=== PATIENT | female | born 1950 | race Caucasian/White ===

== ENCOUNTER 2022-06-05 11:15 | Outpatient (CLI) | payer MEDICARE, BC, SELFPAY | END 2022-06-05 11:16 | disposition home or self-care (01) | PROVIDERS: Visit Provider Orthopaedic Surgery | DX: Z01.818 Encounter for other preprocedural examination (principal) | CPT/HCPCS: 36415; 86850; 86900; 86901 ==

== ENCOUNTER 2022-06-07 05:57 | Day surgery (SDC) | payer MEDICARE, BC, SELFPAY ==
[2022-06-07] VITALS (26 sets, daily range): BP systolic 109–171; BP diastolic 45–79; PULSE 46–68; RESP 12–18; TEMP 35.6–36.4; O2SAT 95–100; BMI 27.6
[2022-06-07] MEDS: ACETAMINOPHEN 500 MG TABLET 1000 MG PO ×3 (06:32→22:00)
[2022-06-07] MEDS: OXYCODONE (CR) 10 MG TAB.ER.12H PO (06:32)
[2022-06-07] MEDS: CELECOXIB 200 MG CAPSULE PO ×2 (06:32→20:41)
[2022-06-07] MEDS: SODIUM CHLORIDE 0.9 % (FLUSH) 10 ML SYRINGE IVF (06:45)
[2022-06-07] MEDS: LACTATED RINGERS 1000 ML 1,000 ML 100 ML IV (06:45)
[2022-06-07] MEDS: MIDAZOLAM HCL 1 MG/ML inj IVP (07:10)
[2022-06-07] MEDS: fentaNYL 100 MCG/2 ML inj IVP (07:10)
--- NOTE | 2022-06-07 07:13 | SUR.PREOP ---
TIME?OUT:?0709 PT/YOKASTA RN/Jules MUHAMMAD MDA?VERIFICATION?OF?SURGICAL?SITE,?PROCEDURE,?AND?CONSENT OBTAINED?PRIOR?TO?INVASIVE?PROCEDURE.
[2022-06-07] MEDS: TRANEXAMIC ACID 100 MG/ML INJ 1000 MG IV (07:50)
[2022-06-07] MEDS: CEFAZOLIN 2 GM INJ IVP (07:55)
--- NOTE | 2022-06-07 08:16 | CRLHL7_ITS ---
For Patients: As a result of the Cures Act, medical imaging exams and procedure reports are released immediately into your electronic medical record. You may view this report before your referring provider. If you have questions, please contact your health care provider. Indication: Hip replacement surgery Technique: AP hip fluoroscopic image. Fluoroscopy time 56.3 seconds. Findings/Impression: Hardware from a left total hip arthroplasty is in satisfactory position. Dictated by Eloy Ahumada MD @ 06/07/2022 9:26:54 AM (Electronically Signed)
--- NOTE | 2022-06-07 09:13 | W.PM.NB ---
Nerve Block Nerve Block Time Seen by Provider: 07:10 Date Seen: 06/07/22 Type of block requested by surgeon for post-operative analgesia: CHEMA/LFCN Side: left Time out performed: Yes Verification of patient name: Yes Verification of date of : Yes Site marking: site marked Name of person performing procedure: Tariq Continuous monitoring Was continuous monitoring of O2 sat, B/P, shell core and molding supervisor, recorded every 15 minutes?: Yes Procedure Checklist: sterile prep, needles and gloves Ultrasound guided. Images saved: Yes Medications given in 5ml increments after negative aspiration: Ropivicaine %: 0.5 mL: 20 Needle gauge: 20 Decadron (mg): 10 Precedex (mcg): 25 Patient tolerated procedure well: Yes Additional comments: Needle noted adjacent to nerve Block Charges Block Charge (with Pro Fee): Other Periph Nerve Block Use of Ultrasound Machine for Block: Yes- US Guidance/pain block
--- NOTE | 2022-06-07 09:14 | P.ORPRC_ITS ---
Procedure Note Date of procedure: 06/07/22 Procedure: SURGEON: Manolo Latif MD MANAGER CONSTRUCTION: Danielle White PA-C, DOUGLAS Murphy PREOPERATIVE DIAGNOSIS: Left hip osteoarthritis POSTOPERATIVE DIAGNOSIS: Left hip osteoarthritis NAME OF OPERATION: Left total hip arthroplasty IMPLANTS: 1. [employer] [place] # 52 sector ingrowth cup 2. 36 x 52 +4 neutral polyethylene 3. Corail # 15 standard collared ingrowth stem 4. 36 + 1.5 ceramic femoral head ANESTHESIA: General ESTIMATED BLOOD LOSS: 100 cc COMPLICATIONS: None SPECIMENS: None DRAINS: None PREOPERATIVE ANTIBIOTICS: Ancef 2 grams INDICATIONS: The patient is a 72-year-old with a longstanding history of severe, unrelenting left hip pain secondary to end-stage left hip osteoarthritis. Despite appropriate nonoperative management, including activity modification, use of an assist device, anti-inflammatories, ertw-mzj-srllejb deanna n medication, physical therapy and injections, they continue to have pain and disability. Operative intervention was offered. The risks, benefits and expected outcomes were discussed in detail. These included but were not limited to: Infection, bleeding, injury to blood vessel or nerve, venous thromboembolism. All questions were answered to their satisfaction. Use of an clinical physician assistant was necessary throughout the case for patient positioning and safety, soft tissue retraction and closure. PROCEDURE: The patient was placed supine on the Earp table. General anesthesia was administered. The clinical physician assistant made sure the patient was properly positioned. The left hip was prepped and draped in the usual sterile fashion. The image intensifier was brought in for a perfect AP pelvis and a perfect double tear drop AP view of each hip which were used for intraoperative templating with our fluoroscopic guide. An oblique incision was made 3 cm distal and 3 cm lateral to the anterior superior iliac spine. The clinical physician assistant retracted the soft tissues to protect them. Subcutaneous dissection was taken with electrocautery to the superficial fascia. The fascia was divided in line with the incision. Blunt dissection was carried medially to the tensor fascia deepika and sartorius interval. Deep dissection was carried with electrocautery. The circumflex vessels were cauterized and divided. The capsule was exposed and then divided in a T- fashion, tagged with #1 Ethibond sutures. Retractors were placed in the joint, held by the clinical physician assistant. The corkscrew was placed in the femoral head. The neck cut was made in the subcapital region. We made a second neck cut more distal. The napkin ring of bone was removed. The femoral head was removed intact. Acetabular retractors were placed, held by the clinical physician assistant. The labrum was sharply debrided. The capsule was released. The 43 mm reamer was used to the true medial wall. We then enlarged in 2 mm increments using the image intensifier for our reamer placement. We impacted the cup which had excellent purchase. We placed the hole eliminator and the polyethylene. Attention was then turned to the proximal femur. The limb was placed in 140 degrees of external rotation, maximum extension and adduction. A significant amount of time was spent releasing the capsule to allow us to deliver the femur into the wound and complete the femoral side safely. Retractors were held by the clinical physician assistant throughout the femoral preparation. The jukebox operator and canal finder were used. Broaches were used to a stable size. The calcar reamer was used. Trial components were placed. The hip was reduced and was found to be stable with appropriate soft tissue tension. Length and offset had been nicely restored using the image intensifier and our fluoroscopic guide. Trial components were removed. The stem was impacted. We placed the femoral head. Again, the hip was reduced and was found to be stable with appropriate soft tissue tension. Length and offset had been nicely restored. The clinical physician assistant did a three minute dilute Betadine solution soak. The clinical physician assistant irrigated the wound with 3 liters of normal saline via pulse lavage. The as sistant repaired the anterior capsule with a #1 Vicryl and our previously placed Ethibond sutures. The clinical physician assistant closed the fascia over the tensor fascia deepika with a #1 PDO Stratafix, subcutaneous tissues with 2-0 Vicryl, skin with a running 3-0 Stratafix and glue. A dry dressing was applied by the clinical physician assistant. Sponge and needle counts were correct x 2. The patient tolerated the procedure well; there were no apparent complications. They were awakened and extubated in the operating room, sent to the Post-Anesthesia Care Unit in satisfactory condition. PLAN: 1. The patient will be mobilized with physical therapy, weight-bearing as tolerates 2. Xarelto x 5 days then aspirin x 30 days will be used for DVT prophylaxis 3. The patient will be discharged once medically appropriate
--- NOTE | 2022-06-07 09:49 | CRLHL7_ITS ---
For Patients: As a result of the Cures Act, medical imaging exams and procedure reports are released immediately into your electronic medical record. You may view this report before your referring provider. If you have questions, please contact your health care provider. Indication: POST OP LEFT TISH Technique: AP hip centered pelvis and lateral view left hip Findings/Impression: Hardware from a left total hip arthroplasty is in satisfactory position. Bone alignment is normal. No sign of acute fracture. Postop changes are within normal limits. Dictated by Eloy Ahumada MD @ 06/07/2022 10:21:25 AM (Electronically Signed)
--- NOTE | 2022-06-07 09:52 | W.ANESCHARGE ---
Anesthesia Charges Start Date/Time Anesthesia Start Date: 06/07/22 Anesthesia Start Time: 07:42 Stop Date/Time Anesthesia Stop Date: 06/07/22 Anesthesia Stop Time: 09:50 Summary Emergency: No Extremes of Age: Over 70-CPT 20687
[2022-06-07] MEDS: fentaNYL 100 MCG/2 ML inj 50 MCG IVP (09:57)
[2022-06-07] MEDS: MEPERIDINE 25 MG/ML INJ 12.5 MG IVP (10:01)
--- NOTE | 2022-06-07 10:03 | SUR.PHASEI ---
PATIENT STATES HURTS. ADMIN FENTANYL AND DEMEROL - SEE EMAR
--- NOTE | 2022-06-07 10:15 | W.ANESCHARGE ---
Anesthesia Charges Start Date/Time Anesthesia Start Date: 06/07/22 Anesthesia Start Time: 07:42 Stop Date/Time Anesthesia Stop Date: 06/07/22 Anesthesia Stop Time: 09:50 Summary Emergency: No Extremes of Age: Over 68-CPT 62613
--- NOTE | 2022-06-07 10:29 | SUR.PHASEI ---
PT. VITAL SIGNS STABLE. TRANSFERRED PT TO M/S/ VIA BED.
[2022-06-07] MEDS: LACTATED RINGERS 1000 ML 1,000 ML 75 ML IV (12:56)
[2022-06-07] MEDS: CEFAZOLIN 1 GM in 0.9 % SODIUM CHLORIDE Mini-bag 100 ML IVPB ×2 (13:46→22:01)
[2022-06-07] MEDS: OXYCODONE 5 MG TABLET PO (13:51)
--- NOTE | 2022-06-07 14:49 | PM.IMCN1 ---
Date of Consult Patient: Other Consult date: 06/07/22 Requesting Physician: Orthopedics Primary Care Provider: Tash Oconnor MD Consult Narrative Reason for consult: Help managing hypertension perioperatively Narrative: Anayeli Vincent is a 72 year old woman with longstanding history of hypertension and osteoarthritis who presents for an elective left total hip arthroplasty due to end-stage coxarthrosis. Surgery is undertaken per Dr. Latif and there are no apparent postoperative complications. Estimated blood loss 100 mL. Has a sense of lightheadedness or cloudy awareness. She states this happened sometimes with anesthesia. Denies chest heaviness, pressure, tightness, or pain. Denies dyspnea. Denies syncope or near-syncope. Denies orthostasis. Denies nausea or vomiting. Concerned about her blood pressures being higher than what they normally are with systolic values of 150-160 mmHg. Tolerating increased activities including transferring from bed to chair. Review of Systems Status of ROS: Reports: 6 or more systems reviewed and unremarkable except as noted in History and below Narrative: Independent at home. She is the primary caregiver for her ?housemate. ? She is ordinarily quite capable of caring all of her activities of daily living and supporting those around her. Her daughter will be helping her postoperatively. I reviewed the preoperative history and physical. No recent travel, trauma, or injury. No recent infectious illness, fever, rigors, or diaphoresis. No recent weight loss or weight gain. Bowel and bladder are satisfactory. No focal motor neurological deficits. Denies hypoglycemia episodes. Acknowledges longstanding hyponatremia. She tells me that her preop sodium level of 133 is higher than usual. Historically she had been on hydrochlorothiazide. That was stopped and she was switched to triamterene with hydrochlorothiazide, the maxzide formula, and her sodiums have been better controlled since. Ordinarily drinks at least 1 glass of wine nightly. Denies alcohol withdrawals. No other street or recreational drug use. Has never used tobacco. 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 [facility] Medical History (Updated 06/07/22 @ 15:07 by Cl Soto MD) Allergic rhinitis Arthritis GERD (gastroesophageal reflux disease) Hypertension Osteopenia Seborrheic dermatitis of scalp Squamous cell carcinoma of left upper extremity Surgical History H/O eye surgery Hx of tonsillectomy Status post right hip replacement Family History Brother Myocardial infarction Father Myocardial infarction Abdominal aortic aneurysm Mother COPD (chronic obstructive pulmonary disease) Stroke Sister High blood pressure Pulmonary embolism Social History Smoking Status: Never smoker How often do you have a drink containing alcohol: 4 or more times a week Alcohol type: wine How many standard drinks containing alcohol do you have on a typical day: 1 or 2 How often do you have six or more drinks on one occasion: Never AUDIT-C Alcohol total score: 4 Non-prescribed substance use: denies use Non-prescribed substance use details: ibuprofen, acetaminophen Caffeine: Yes (tea, 2 cups/am) Are you using contraception or practicing any form of control: No Meds Home Medications and Allergies Home Medications Medication Instructions Recorded Confirmed Type aspirin 81 mg tablet,delayed 81 mg PO DAILY 06/06/22 06/07/22 History release (Ecotrin Low Strength) cetirizine 10 mg tablet 5 mg PO DAILY PRN 06/06/22 06/07/22 History lisinopril 30 mg tablet 30 mg PO DAILY 06/06/22 06/06/22 History metoprolol succinate 100 mg 100 mg PO HS 06/06/22 06/07/22 History tablet,extended release 24 hr omeprazole 20 mg capsule,delayed 20 mg PO DAILY 06/06/22 06/06/22 History release triamterene 37.5 1 tab PO DAILY 06/06/22 06/06/22 History mg-hydrochlorothiazide 25 mg tablet Allergies Allergy/AdvReac Type Severity Reaction Status Date / Time nitrofurantoin Allergy Severe dyspnea Verified 06/07/22 06:17 [From Macrobid] ketoconazole Allergy Intermediate orally Verified 06/07/22 06:17 caused massive hives rabeprazole Allergy Unknown Verified 06/07/22 06:17 amoxicillin [From Augmentin] AdvReac Intermediate Diarrhea Verified 06/07/22 06:17 clavulanic acid AdvReac Intermediate Diarrhea Verified 06/07/22 06:17 [From Augmentin] Exam Narrative: Exam Narrative: No acute distress. Appears comfortable. Alert, oriented to self, place, time, situation. Articulate and cooperative. Friendly. Mood and affect are congruent. On exam of neck she has no JVD, hepatojugular reflux, or carotid bruits. Neck is supple. Midline trachea. Normal thyroid. No adenopathy in the pre or postauricular chains, anterior-posterior cervical chains, supra or infraclavicular fossa, or axilla bilaterally. Lungs are entirely clear to auscultation. Chest wall excursions are full. Heart tones with regular rhythm, normal S1-S2, no murmur, gallop, or rub. Abdomen with active bowel sounds, soft, nontender. No rebound or guarding. Extremities without edema. Palpable pulses in upper and lower extremities. Skin is warm, dry, intact. No focal motor neurologic deficits. Const: Vital Signs, click to edit/add: Vital Signs - 24 hr 06/07/22 06:29 06/07/22 07:10 06/07/22 07:15 Temperature 97.3 F L Pulse Rate 53 L 50 L 47 L Pulse Rate [Pulse Oximeter] Respiratory Rate 18 16 14 Blood Pressure 148/79 H 144/51 H 110/45 L Blood Pressure [Ri ght Arm] Pulse Oximetry 100 99 98 Oxygen Delivery Me thod Room Air Nasal Cannula Nasal Cannula Oxygen Flow Rate Fraction of Inspir ed Oxygen 2 2 06/07/22 07:30 06/07/22 09:47 06/07/22 09:55 Temperature 97.4 F L Pulse Rate 46 L 54 L 61 Pulse Rate [Pulse Oximeter] Respiratory Rate 14 14 16 Blood Pressure 109/45 L 149/70 H 129/74 Blood Pressure [Ri ght Arm] Pulse Oximetry 100 97 99 Oxygen Delivery Me thod Nasal Cannula Room Air OxyMask Oxygen Flow Rate 10 Fraction of Inspir ed Oxygen 2 06/07/22 10:00 06/07/22 10:05 06/07/22 10:10 Temperature 97.6 F Pulse Rate 60 59 L 56 L Pulse Rate [Pulse Oximeter] Respiratory Rate 14 18 16 Blood Pressure 152/75 H 154/65 H 153/64 H Blood Pressure [Ri ght Arm] Pulse Oximetry 100 100 100 Oxygen Delivery Me thod OxyMask OxyMask Blow By Oxygen Flow Rate 10 6 6 Fraction of Inspir ed Oxygen 06/07/22 10:15 06/07/22 10:20 08/02/22 10:25 Temperature Pulse Rate 56 L 53 L 58 L Pulse Rate [Pulse Oximeter] Respiratory Rate 12 16 16 Blood Pressure 146/61 H 147/65 H 143/65 H Blood Pressure [Ri ght Arm] Pulse Oximetry 97 96 95 Oxygen Delivery Me thod Room Air Room Air Room Air Oxygen Flow Rate Fraction of Inspir ed Oxygen 06/07/22 10:34 06/07/22 10:45 06/07/22 11:00 Temperature 96.0 F L 96.6 F L Pulse Rate 55 L Pulse Rate [Pulse Oximeter] 55 L 56 L Respiratory Rate 14 16 16 Blood Pressure Blood Pressure [Ri ght Arm] 118/76 163/67 H 171/67 H Pulse Oximetry 99 100 Oxygen Delivery Me thod Room Air Room Air Oxygen Flow Rate Fraction of Inspir ed Oxygen 06/07/22 11:15 06/07/22 11:30 06/07/22 12:00 Temperature 96.8 F L Pulse Rate Pulse Rate [Pulse Oximeter] 54 L 53 L 55 L Respiratory Rate 16 16 16 Blood Pressure Blood Pressure [Ri ght Arm] 158/56 H 164/50 H 164/65 H Pulse Oximetry 100 99 98 Oxygen Delivery Me thod Room Air Room Air Room Air Oxygen Flow Rate Fraction of Inspir ed Oxygen 06/07/22 12:30 06/07/22 13:00 Temperature 97.1 F L Pulse Rate Pulse Rate [Pulse Oximeter] 57 L 60 Respiratory Rate 16 18 Blood Pressure Blood Pressure [Ri ght Arm] 161/63 H 152/59 H Pulse Oximetry 97 98 Oxygen Delivery Me thod Room Air Room Air Oxygen Flow Rate Fraction of Inspir ed Oxygen Documenting provider has reviewed patient's vital signs: yes Assessment and Plan Assessment and plan (1) Status post left hip replacement: Status: Acute (2) Osteoarthritis: Status: Acute (3) Hypertension: Status: Acute (4) GERD (gastroesophageal reflux disease): Status: Acute (5) Allergic rhinitis: Status: Acute (6) Chronic hyponatremia: Status: Acute Plan 1. Reviewed my impression with the patient. Answered her questions. 2. Restart most of her antihypertensive medicines today except for we will hold the triamterene with hydrochlorothiazide. 3. Continue to monitor vitals and labs including her serum sodium. 4. Agree with perioperative venous thromboembolism prophylaxis efforts. 5. Agree with perioperative antibiotic prophylaxis. 6. Although she denies alcohol withdrawal symptoms, will be mindful of the possibility. 7. Will follow with Orthopedic surgery while she is in hospital.
[2022-06-07] MEDS: OMEPRAZOLE 20 MG CAPSULE DR PO (15:55)
--- NOTE | 2022-06-07 17:48 | PC.NURSE ---
Pt. up in chair and to BSC with walker, transfer belt and assist of one. Tolerating regular diet. Voiding. Left hip dressing dry and intact. CMS intact. Pain controlled at 2/10 with Oxycodone and scheduled Tylenol.
[2022-06-07] MEDS: METOPROLOL SUCCINATE (XL) 100 MG TAB PO (20:41)
[2022-06-07] MEDS: SENNOSIDES 1 TAB TABLET 2 TAB PO (20:41)
[2022-06-07] MEDS: LORazepam 0.5 MG TABLET PO (22:01)
--- NOTE | 2022-06-07 22:57 | PC.NURSE ---
Shift note 19-23: Pt up to BR w/ SBA and walker, moving well. Rating L hip pain 1-2/10 taking only scheduled only meds along w/ ice to op site. Fluids capped as po intake and UOP adequate, tolerating reg diet. L hip drsg CDI, CMS intact. Plans to DC home w/ daughter help tomorrow.
[2022-06-08] MEDS: OXYCODONE 5 MG TABLET PO ×2 (00:07→08:18)
[2022-06-08 03:00] VITALS: BP 128/51; PULSE 63; RESP 18; TEMP 36.3; O2SAT 95
[2022-06-08] MEDS: ACETAMINOPHEN 500 MG TABLET 1000 MG PO ×2 (03:31→10:06)
[2022-06-08] MEDS: CEFAZOLIN 1 GM in 0.9 % SODIUM CHLORIDE Mini-bag 100 ML IVPB (05:48)
--- NOTE | 2022-06-08 06:06 | PC.NURSE ---
23-07: pt pleasant and cooperative. A x 1 with gb and walker, tolerating very well. No c/o nausea. Passing gas. Clear yellow urine output. Rating left hip pain 1-2/10. LS CTA. VSS. HR 50s-60s.?Dressing CDI. Bruising noted to lateral left hip. Active ice on. Teds on. Pt requested SCDs be removed as they were keeping her from falling asleep.
[2022-06-08 07:02] LABS: Basophils Percent Auto 0.1 % (0.0-3.0); Hematocrit 29.2 % (33.0-51.0); Immature Granulocytes Abs Auto 0.04 K/uL (0.00-0.30); Mean Corpuscular HGB Conc 34 gm/dL (32-36); Mean Corpuscular Hemoglobin 29 pg (26-34); Mean Corpuscular Volume 86 fL (80-100); Monocytes Percent Auto 8.1 % (0.0-11.0); Neutrophils Percent Auto 80.5 % (42.0-72.0); Platelet Count* 360 K/uL (140-440); RDW Coefficient of Variation % 12.2 % (11.5-15.5); Red Blood Count 3.41 m/uL (4.00-5.20); White Blood Count* 13.62 K/uL (4.50-11.00)
[2022-06-08 07:11] LABS: Slide Review Reflex No; Sodium* 125 mmol/L (135-149)
[2022-06-08 07:12] LABS: Potassium* 3.9 mmol/L (3.6-5.1)
[2022-06-08 07:14] LABS: Creatinine* 0.6 mg/dL (0.5-1.5); Est. Creatinine Clearance* 42.62; Estimated Glomerular Filt Rate 94 ml/min
[2022-06-08 07:15] LABS: Blood Urea Nitrogen* 13 mg/dL (7-30)
[2022-06-08 08:09] VITALS: BP 132/63; PULSE 77; RESP 18; TEMP 36.4; O2SAT 98
[2022-06-08] MEDS: lisinopriL 10 MG TABLET 30 MG PO (08:16)
[2022-06-08] MEDS: CELECOXIB 200 MG CAPSULE PO (08:17)
[2022-06-08] MEDS: OMEPRAZOLE 20 MG CAPSULE DR PO (08:17)
[2022-06-08] MEDS: RIVAROXABAN 10 MG TABLET PO (08:17)
[2022-06-08] MEDS: SENNOSIDES 1 TAB TABLET 2 TAB PO (08:18)
--- NOTE | 2022-06-08 08:35 | PM.ORPN ---
Subjective Subjective Time Seen by Provider: 07:45 Date Seen: 06/08/22 Principal diagnosis: Status post left hip replacement Interval history: Anayeli is comfortable in her bed this morning. If she meets discharge criteria she will discharge to home today. Ortho Exam Narrative Exam Narrative: Alert and oriented x3. Patient is in no acute distress. Converses without labored breathing. Hearing is grossly intact. Ambulates with a walker. Examination of the left hip shows the dressing is intact. There is no ecchymosis. No erythema. No warmth. Mild soft tissue edema about the left hip. She is easily able to flex and extend her hip and dorsiflex and plantar flex her ankle. CMS intact left lower extremity. Bilateral calves are soft and nontender. Const Vital Signs, click to edit/add: Vital Signs - 24 hr 06/07/22 09:47 06/07/22 09:55 06/07/22 10:00 Temperature 97.4 F L Pulse Rate 54 L 61 60 Pulse Rate [Pulse Oximeter] Respiratory Rate 14 16 14 Blood Pressure 149/70 H 129/74 152/75 H Blood Pressure [Right Arm] Pulse Oximetry 97 99 100 Oxygen Delivery Method Room Air OxyMask OxyMask Oxygen Flow Rate 10 10 06/07/22 10:05 06/07/22 10:10 06/07/22 10:15 Temperature 97.6 F Pulse Rate 59 L 56 L 56 L Pulse Rate [Pulse Oximeter] Respiratory Rate 18 16 12 Blood Pressure 154/65 H 153/64 H 146/61 H Blood Pressure [Right Arm] Pulse Oximetry 100 100 97 Oxygen Delivery Method OxyMask Blow By Room Air Oxygen Flow Rate 6 6 06/07/22 10:20 06/07/22 10:25 06/07/22 10:34 Temperature 96.0 F L Pulse Rate 53 L 58 L 55 L Pulse Rate [Pulse Oximeter] Respiratory Rate 16 16 14 Blood Pressure 147/65 H 143/65 H Blood Pressure [Right Arm] 118/76 Pulse Oximetry 96 95 Oxygen Delivery Method Room Air Room Air Oxygen Flow Rate 06/07/22 10:45 06/07/22 11:00 06/07/22 11:15 Temperature 96.6 F L Pulse Rate Pulse Rate [Pulse Oximeter] 55 L 56 L 54 L Respiratory Rate 16 16 16 Blood Pressure Blood Pressure [Right Arm] 163/67 H 171/67 H 158/56 H Pulse Oximetry 99 100 100 Oxygen Delivery Method Room Air Room Air Room Air Oxygen Flow Rate 06/07/22 11:30 06/07/22 12:00 06/07/22 12:30 Temperature 96.8 F L 97.1 F L Pulse Rate Pulse Rate [Pulse Oximeter] 53 L 55 L 57 L Respiratory Rate 16 16 16 Blood Pressure Blood Pressure [Right Arm] 164/50 H 164/65 H 161/63 H Pulse Oximetry 99 98 97 Oxygen Delivery Method Room Air Room Air Room Air Oxygen Flow Rate 06/07/22 13:00 06/07/22 14:00 06/07/22 15:00 Temperature 97.3 F L Pulse Rate Pulse Rate [Pulse Oximeter] 60 68 68 Respiratory Rate 18 16 16 Blood Pressure Blood Pressure [Right Arm] 152/59 H 137/72 149/61 H Pulse Oximetry 98 97 97 Oxygen Delivery Method Room Air Room Air Room Air Oxygen Flow Rate 06/07/22 16:00 06/07/22 17:00 06/07/22 19:40 Temperature 97.6 F 97.5 F L Pulse Rate Pulse Rate [Pulse Oximeter] 62 63 64 Respiratory Rate 18 16 18 Blood Pressure Blood Pressure [Right Arm] 152/62 H 150/63 H 147/77 H Pulse Oximetry 97 98 98 Oxygen Delivery Method Room Air Room Air Room Air Oxygen Flow Rate 06/07/22 23:00 06/07/22 23:00 06/08/22 03:00 Temperature 97.1 F L 97.3 F L Pulse Rate Pulse Rate [Pulse Oximeter] 57 L 57 L 63 Respiratory Rate 18 18 18 Blood Pressure Blood Pressure [Right Arm] 123/59 L 128/51 L Pulse Oximetry 97 95 Oxygen Delivery Method Room Air Room Air Oxygen Flow Rate 06/08/22 08:09 Temperature 97.5 F L Pulse Rate Pulse Rate [Pulse Oximeter] 77 Respiratory Rate 18 Blood Pressure Blood Pressure [Right Arm] 132/63 Pulse Oximetry 98 Oxygen Delivery Method Room Air Oxygen Flow Rate Documenting provider has reviewed patient's vital signs: yes Assessment and Plan Assessment and plan (1) Status post left hip replacement: Problem details: Date of surgery 06/07/2022 Plan for discharge is today to home if they meet discharge criteria. DVT prophylaxis includes Xarelto 10 mg daily for total of 5 days, then aspirin 81 mg twice daily for 30 days, Adi stockings x1 month may remove for 1 hr per day, frequent ambulation Remove dressing 1 week. Observe wound and phone Orthopedics with any questions or concerns Use Ice on operative hip unrestricted. Return to clinic in 1 week with PA for a wound check Return to clinic in [address] Latif Minimize narcotic use. Wean off and discontinue soon as possible. Activities as tolerated. No strenuous activity. Attend outpt PT Status: Acute (2) Osteoarthritis: Status: Acute (3) Hypertension: Status: Acute (4) GERD (gastroesophageal reflux disease): Status: Acute (5) Allergic rhinitis: Status: Acute (6) Chronic hyponatremia: Status: Acute
--- NOTE | 2022-06-08 10:28 | P.DS_ITS ---
DS: Providers Provider Time Seen by Provider: 09:30 Date Seen: 06/08/22 Primary care physician: Tash Oconnor MD Admitting Clinician: Manolo Latif MD Consults: 06/07/22 10:28 Consult to Occupational Therapy [CONS] Routine Comment: Reason(s) for OT Consult:: ADLs Prior to Discharge Any Restrictions?:: No Restrictions Comment: Consult to Occupational Therapy [CONS] Routine Comment: Reason(s) for OT Consult:: Evaluate and Treat Any Restrictions?:: No Restrictions Consult to Physical Therapy [CONS] Routine Comment: Ambulate in the [place]irez today Reason(s) for PT Consult:: Evaluate and Treat Any Restrictions?:: No Restrictions Comment: Nursing Activity Consult to Physical Therapy [CONS] Routine Comment: Ambulate in the [place]irez today Reason(s) for PT Consult:: THR TX Protocol POD#0 Any Restrictions?:: No Restrictions Comment: Nursing Activity: See nursing activity order Consult to Physician [CONS] Routine Comment: Consulting Provider: Hospitalists Has provider been notified: No Consult to Wireless Engineer [CONS] Routine Comment: Reason for Consult:: Discharge Planning Needs Consult to Wireless Engineer [CONS] Routine Comment: Reason for Consult:: Discharge Planning Needs Attending Physician on discharge: Manolo Latif MD Date of Discharge: 06/08/22 DS: Diagnosis Discharge Diagnosis (1) Osteoarthritis: Status: Acute (2) Status post left hip replacement: Status: Acute Problem details: Date of surgery 06/07/2022 Plan for discharge is today to home if they meet discharge criteria. DVT prophylaxis includes Xarelto 10 mg daily for total of 5 days, then aspirin 81 mg twice daily for 30 days, Adi stockings x1 month may remove for 1 hr per day, frequent ambulation Remove dressing 1 week. Observe wound and phone Orthopedics with any questions or concerns Use Ice on operative hip unrestricted. Return to clinic in 1 week with PA for a wound check Return to clinic in [address] Latif Minimize narcotic use. Wean off and discontinue soon as possible. Activities as tolerated. No strenuous activity. Attend outpt PT (3) Hypertension: Status: Acute (4) Chronic hyponatremia: Status: Acute (5) GERD (gastroesophageal reflux disease): Status: Acute (6) Allergic rhinitis: Status: Acute DS: Summary Hospital Course Hospital Course: Anayeli Vincent is a 72 year old woman with longstanding history of hypertension and osteoarthritis who presents for an elective left total hip arthroplasty due to end-stage coxarthrosis.? Surgery is undertaken per Dr. Latif and there are no apparent postoperative complications.? Estimated blood loss 100 mL. Has a sense of lightheadedness or cloudy awareness.? She states this happened sometimes with anesthesia.? Denies chest heaviness, pressure, tightness, or pain.? Denies dyspnea.? Denies syncope or near-syncope.? Denies orthostasis.? Denies nausea or vomiting.? Concerned about her blood pressures being higher than what they normally are with systolic values of 150-160 mmHg.? Tolerating increased activities including transferring from bed to chair. Patient did well overnight. Tolerating increased activities. Tolerating oral intake. Denies nausea or vomiting. Denies orthostasis. Denies chest heaviness, pressure, tightness, or pain. Denies dyspnea. Status at Discharge Functional status at discharge: uses cane/walker Overall status at discharge: patient is progressing back to baseline Time Spent with Patient Time attestation: Total time spent providing and/or coordinating discharge services: Time spent: Less than 30 minutes Exam Narrative: Exam Narrative: No acute distress.? Appears comfortable. Alert, oriented to self, place, time, situation.? Articulate and cooperative.? Friendly.? Mood and affect are congruent.? On exam of neck she has no JVD, hepatojugular reflux, or carotid bruits. Neck is supple.? Midline trachea.? Normal thyroid. No adenopathy in the pre or postauricular chains, anterior-posterior cervical chains, supra or infraclavicular fossa, or axilla bilaterally. Lungs are entirely clear to auscultation.? Chest wall excursions are full.? Heart tones with regular rhythm, normal S1-S2, no murmur, gallop, or rub.? Abdomen with active bowel sounds, soft, nontender.? No rebound or guarding. Extremities without edema.? Palpable pulses in upper and lower extremities.? Skin is warm, dry, intact. No focal motor neurologic deficits. Tolerating increased activities with use of walker. Const: Vital Signs, click to edit/add: Vital Signs - 24 hr 06/07/22 10:34 06/07/22 10:45 06/07/22 11:00 Temperature 96.0 F L 96.6 F L Pulse Rate 55 L Pulse Rate [Pulse Oximeter] 55 L 56 L Respiratory Rate 14 16 16 Blood Pressure [Ri ght Arm] 118/76 163/67 H 171/67 H Pulse Oximetry 99 100 Oxygen Delivery Me thod Room Air Room Air 06/07/22 11:15 06/07/22 11:30 06/07/22 12:00 Temperature 96.8 F L Pulse Rate Pulse Rate [Pulse Oximeter] 54 L 53 L 55 L Respiratory Rate 16 16 16 Blood Pressure [Ri ght Arm] 158/56 H 164/50 H 164/65 H Pulse Oximetry 100 99 98 Oxygen Delivery Me thod Room Air Room Air Room Air 06/07/22 12:30 06/07/22 13:00 06/07/22 14:00 Temperature 97.1 F L 97.3 F L Pulse Rate Pulse Rate [Pulse Oximeter] 57 L 60 68 Respiratory Rate 16 18 16 Blood Pressure [Ri ght Arm] 161/63 H 152/59 H 137/72 Pulse Oximetry 97 98 97 Oxygen Delivery Me thod Room Air Room Air Room Air 06/07/22 15:00 06/07/22 16:00 06/07/22 17:00 Temperature 97.6 F Pulse Rate Pulse Rate [Pulse Oximeter] 68 62 63 Respiratory Rate 16 18 16 Blood Pressure [Ri ght Arm] 149/61 H 152/62 H 150/63 H Pulse Oximetry 97 97 98 Oxygen Delivery Me thod Room Air Room Air Room Air 06/07/22 19:40 06/07/22 23:00 06/07/22 23:00 Temperature 97.5 F L 97.1 F L Pulse Rate Pulse Rate [Pulse Oximeter] 64 57 L 57 L Respiratory Rate 18 18 18 Blood Pressure [Ri ght Arm] 147/77 H 123/59 L Pulse Oximetry 98 97 Oxygen Delivery Me thod Room Air Room Air 06/08/22 03:00 06/08/22 08:09 Temperature 97.3 F L 97.5 F L Pulse Rate Pulse Rate [Pulse Oximeter] 63 77 Respiratory Rate 18 18 Blood Pressure [Ri ght Arm] 128/51 L 132/63 Pulse Oximetry 95 98 Oxygen Delivery Me thod Room Air Room Air Documenting provider has reviewed patient's vital signs: yes DS: Data Data Completed and Pending Labs on day of discharge: Labs from last 24 hours 06/08/22 06/08/22 06:22 06:22 WBC 13.62 H RBC 3.41 L Hgb 10.0 L Hct 29.2 L MCV 86 MCH 29 MCHC 34 RDW Coeff of Eliane 12.2 Plt Count 360 Neut % (Auto) 80.5 H Lymph % (Auto) 11.0 L [place] % (Auto) 8.1 Eos % (Auto) 0.0 Baso % (Auto) 0.1 Neut # (Auto) 11.00 H Lymph # (Auto) 1.50 [place] # (Auto) 1.10 H Eos # (Auto) 0.00 Baso # (Auto) 0.00 Abs Immat Gran (auto) 0.04 Sodium 125 L Potassium 3.9 BUN 13 Creatinine 0.6 Estimated Creat Clear 42.62 Estimated GFR 94 Discharge Plan Discharge Disposition: Home, Self-Care Discharging Surgeon: Manolo Latif Follow-Up Appointment: 1 week Prescriptions: New acetaminophen 500 mg Tablet 500 - 1,000 mg PO Q6H MDD 4000 mg per day PRNQty: 100 0RF oxycodone 5 mg Tablet 2.5 - 5 mg PO Q4-6H MDD 6 tabs per day PRN (Reason: Pain) Qty: 42 0RF Rx Instructions: Minimize. Discontinue soon as possible Xarelto 10 mg Tablet 10 mg PO DAILY 4 Days Qty: 4 0RF Rx Instructions: For DVT prophylaxis. Take this medication daily for 4 days, then aspirin 81 mg twice daily for 30 days. sennosides [Senna Lax] 8.6 mg Tablet 17.2 mg PO BID PRN (Reason: constipation) Qty: 100 0RF aspirin 81 mg tablet,chewable 81 mg PO BID 30 Days Qty: 60 2RF triamterene 100 mg capsule 100 mg PO DAILY Qty: 30 2RF Continued metoprolol succinate 100 mg tablet extended release 24 hr 100 mg PO HS lisinopril 30 mg tablet 30 mg PO DAILY omeprazole 20 mg capsule,delayed release(DR/EC) 20 mg PO DAILY cetirizine 10 mg tablet 5 mg PO DAILY PRN Held aspirin [Ecotrin Low Strength] 81 mg tablet,delayed release (DR/EC) 81 mg PO DAILY Hold Instructions: Resume on 07/07/22. Hold until the 30-day twice daily aspirin order per your orthopedic surgeon is completed, then resume once daily aspirin thereafter. Discontinued triamterene-hydrochlorothiazid 37.5-25 mg tablet 1 tab PO DAILY Activity Level: Activity as Tolerated Activity Detail: Keep dressing on for 1 week. Dressing is waterproof. May shower. Surgical glue covers the wound. Attend outpatient physical therapy if scheduled. Ice operative extremity without restriction. Wear compression stockings for 1 month post surgery. May remove for 1 hour per day. Do not drive while taking narcotic pain medication. Do not drink alcohol while taking narcotic pain medication. May drive when safe to do so and have full function of the extremities, this may take 6 weeks or more. Notify Orthopedics with any questions or concerns. ([phone]) Discharge Diet: Regular Diet Detail: Do not add salt to your food after it is on your plate. Patient Instructions: Acetaminophen (By mouth), Aspirin (By mouth), Oxycodone, Rapid Release (By mouth), Triamterene (By mouth), Rivaroxaban (By mouth), Senna (By mouth), Surgical Site Infections (DC), Anterior Hip Replacement (DC) Forms: Work/Release Restrictions Follow-up: Tash Oconnor MD [Primary Care Provider] - (Follow up in 5-10 days with pre- visit hemoglobin, sodium and potassium levels.) Danielle Casiano PA-C [Physician Clothing Room Supervisor] - 06/15/22 1:00 pm ([facility]) Discharge Orders: Discharge Order (Routine); Ordered 06/08/22 Ordered By: Cl Soto
== END 2022-06-08 11:32 | disposition home or self-care (01) ==
LOC: OR 06:04 → MEDSURG 13:44
PROVIDERS: PCP Internal Medicine; Visit Provider Orthopaedic Surgery
PROC: (CPT 27130; principal; 2022-06-07 07:45)
DX: M16.12 Unilateral primary osteoarthritis, left hip (principal); R42 Dizziness and giddiness; I10 Essential (primary) hypertension; K21.9 Gastro-esophageal reflux disease without esophagitis; M85.80 Other specified disorders of bone density and structure, unspecified site; E87.1 Hypo-osmolality and hyponatremia; J30.9 Allergic rhinitis, unspecified
CPT/HCPCS: 27130; 01214; 36415; 64450; 73501; 76000; 76942; 82565; 84132; 84295; 84520; 85025; 97110; 97116; 97161; 97165; 97530; 97535; 99100; A9270; C1776; J0690; J1100; J1170; J2175; J2250; J2405; J2704; J2710; J2795; J3010; J7120